=== PATIENT | female | born 1990 | race Caucasian/White ===

== ENCOUNTER 2020-10-30 23:33 | Outpatient (CLI) | payer BC | END 2020-10-31 00:51 | disposition home or self-care (01) | LOC: GENOP 23:33 | DX: O62.9 Abnormality of forces of labor, unspecified (principal); O26.853 Spotting complicating pregnancy, third trimester; O99.891 Other specified diseases and conditions complicating pregnancy; O25.2 Malnutrition in childbirth; Z3A.28 28 weeks gestation of pregnancy | CPT/HCPCS: G0463 ==

== ENCOUNTER 2020-11-02 10:00 | Outpatient (CLI) | payer BC | END 2020-11-02 12:19 | disposition home or self-care (01) | LOC: GENOP 10:00 | DX: O62.9 Abnormality of forces of labor, unspecified (principal); O42.913 Preterm premature rupture of membranes, unspecified as to length of time between rupture and onset of labor, third trimester; Z3A.28 28 weeks gestation of pregnancy | CPT/HCPCS: 83518; G0463 ==